=== PATIENT | female | born 1995 | race Two or more races ===

== ENCOUNTER 2016-11-01 12:17 | Emergency (ER) | payer BC ==
[~2016-11-01] VITALS: Ht 162.6 cm; Wt 59.5 kg
[2016-11-01 12:19] VITALS: BP 123/82; PULSE 87; RESP 16; TEMP 98.8; O2SAT 99
[2016-11-01] MEDS ORDERED: SODIUM CHLOR 0.9% 1000 ML INJ 1,000 ML IV SCH (12:55)
[2016-11-01] MEDS ORDERED: PANTOPRAZOLE SODIUM 40 MG VIAL IVP ONE (13:00)
[2016-11-01] MEDS ORDERED: SODIUM CHLORIDE 0.9% FLUSH 10 ML FLUSH IV FLUSH PRN (13:00)
[2016-11-01] MEDS ORDERED: ONDANSETRON HCL 4 MG/2 ML VIAL IVP ONE (13:00)
[2016-11-01 13:43] LABS: BASOPHIL % 0.5 % (0.0-2.0); EOSINOPHIL % 0.1 % (0.0-4.0); HEMATOCRIT 38.1 % (35.0-46.0); HEMO FLAGS DIFF FINAL; LYMPH % 32.7 % (9.0-44.0); LYMPHOCYTE # 1.7 TH/MM3 (1.0-4.8); MEAN CORPUSCULAR HEMOGLOBIN 31.1 PG (27.0-34.0); MEAN CORPUSCULAR HGB CONC 33.4 % (32.0-36.0); MONO % 7.8 % (0.0-8.0); NEUT % 58.9 % (16.0-70.0); PLATELET COUNT 227 TH/MM3 (150-450); RED CELL DISTRIBUTION WIDTH 12.8 % (11.6-17.2); WHITE BLOOD COUNT 5.2 TH/MM3 (4.0-11.0)
[2016-11-01 13:46] LABS: BLOOD, URINE NEG (NEG); COMMENT (UR) CULT NOT INDICATED; CULTURE IF INDICATED CULT NOT INDICATED; GLUCOSE,URINE NEG (NEG); KETONE, URINE NEG (NEG); MUCUS URINE FEW /lpf (OCC); NITRITE,URINE NEG (NEG); SQUAMOUS EPITHELIAL CELL URINE 3 /hpf (0-5); URINE COLOR YELLOW (YELLW/STRAW)
[2016-11-01 14:04] LABS: ANION GAP 9 MEQ/L (5-15); AST (GOT) 9 U/L (16-38); BICARBONATE 24.7 MEQ/L (21.0-32.0); BLOOD UREA NITROGEN 7 MG/DL (7-18); CHLORIDE 106 MEQ/L (98-107); GLOMERULAR FILTRATION RATE 85 ML/MIN (>89); POTASSIUM 3.8 MEQ/L (3.5-5.1); SODIUM (NA) 140 MEQ/L (136-145)
[2016-11-01 14:07] LABS: ALKALINE PHOSPHATASE 68 U/L (45-117); ALT (GPT) 14 U/L (9-42); TOTAL BILIRUBIN ADULT 0.6 MG/DL (0.2-1.0)
--- NOTE | 2016-11-01 14:15 | PD ---
HPI Chief Complaint: GI Complaint Time Seen by Provider: 12:51 Travel History International Travel<30 days: No Contact w/Intl Traveler<30days: No Traveled to known affect area: No History of Present Illness HPI 20-year-old female came to the emergency room with history of epigastric pain, heartburn along with rectal pain and some bleeding. Patient says that the rectal pain and the bleeding has been going on for past 4-5 days. It's however progressively worsening where she is and sharp pain every time she goes to have a bowel movement. She has noticed blood in her stool only when she wipes herself. The bleeding is not a large quantity. Last night she started having abdominal pain radiating up to her chest substernally. This morning when she woke up it was worse and she got very anxious. She is brought here by her father. Vital signs otherwise within normal limit. Her father let me know that she is under a a lot of stress from her classes. As per him she gets stressed out very easily. PFSH Past Medical History Narrative Medical Patient is otherwise a healthy person. Rest of her past medical, surgical, social and family history is reviewed from the nursing note. Medical History: Denies Significant Hx Diminished Hearing: No Tetanus Vaccination: > 5 Years Influenza Vaccination: No ?: Not LMP: 09/2016 : 0 Para: 0 Miscarriage: 0 : 0 Past Surgical History Surgical History: No Previous Surgery Social History Alcohol Use: Yes (OCC) Tobacco Use: No Substance Use: No ("TRIED CANNABIS") Allergies-Medications (Allergen,Severity, Reaction): Coded Allergies: No Known Allergies (Unverified , 11/01/16) Comments No known drug allergies. Reported Meds & Prescriptions Reported Meds & Active Scripts Active Anusol-Hc Rectal (Hydrocortisone Rectal) 2.5% Cream 1 Applic RECTAL Q4-6H PRN Zofran Odt (Ondansetron Odt) 4 Mg Tab 4 Mg SL Q6HR PRN Protonix (Pantoprazole Sodium) 40 Mg Tab 40 Mg PO DAILY Narrative Medication List of her home medications reviewed from the nursing note. Review of Systems Except as stated in HPI: all other systems reviewed are Neg Physical Exam Narrative GENERAL: Awake, alert, anxious, moderate distress SKIN: Focused skin assessment warm/dry. HEAD: Atraumatic. Normocephalic. EYES: Pupils equal and round. No scleral icterus. No injection or drainage. ENT: No nasal bleeding or discharge. Mucous membranes pink and moist. NECK: Trachea midline. No JVD. CARDIOVASCULAR: Regular rate and rhythm. No murmur appreciated. RESPIRATORY: No accessory muscle use. Clear to auscultation. Breath sounds equal bilaterally. GASTROINTESTINAL: Abdomen soft, epigastric tenderness, nondistended. Hepatic and splenic margins not palpable. : A rectal exam was done. Patient was in anal spasm. There was a small external hemorrhoid with an anal fissure noticed at 6 o'clock position. She was very tender there. MUSCULOSKELETAL: No obvious deformities. No clubbing. No cyanosis. No edema. NEUROLOGICAL: Awake and alert. No obvious cranial nerve deficits. Motor grossly within normal limits. Normal speech. PSYCHIATRIC: Appropriate mood and affect; insight and judgment normal. Data Data Last Documented VS Vital Signs Date Time Temp Pulse Resp B/P Pulse Ox O2 Delivery O2 Flow Rate FiO2 11/01/16 14:41 97 18 128/74 100 11/01/16 12:19 98.8 Orders Complete Blood Count With Diff (11/01/16 12:55) Comprehensive Metabolic Panel (11/01/16 12:55) Lipase (11/01/16 12:55) Urinalysis - C+S If Indicated (11/01/16 12:55) Iv Access Insert/Monitor (11/01/16 12:55) Ecg Monitoring (11/01/16 12:55) Oximetry (11/01/16 12:55) Ondansetron Inj (Zofran Inj) (11/01/16 13:00) Pantoprazole Inj (Protonix Inj) (11/01/16 13:00) Sodium Chlor 0.9% 1000 Ml Inj (Ns 1000 M (11/01/16 12:55) Sodium Chloride 0.9% Flush (Ns Flush) (11/01/16 13:00) Ed Urine Pregnancytest Poc (11/01/16 12:55) Ed Poc Ultrasound (11/01/16 ) Labs Laboratory Tests Test 11/01/16 13:30 White Blood Count 5.2 TH/MM3 Red Blood Count 4.10 MIL/MM3 Hemoglobin 12.7 GM/DL Hematocrit 38.1 % Mean Corpuscular Volume 93.0 FL Mean Corpuscular Hemoglobin 31.1 PG Mean Corpuscular Hemoglobin 33.4 % Concent Red Cell Distribution Width 12.8 % Platelet Count 227 TH/MM3 Mean Platelet Volume 8.5 FL Neutrophils (%) (Auto) 58.9 % Lymphocytes (%) (Auto) 32.7 % Monocytes (%) (Auto) 7.8 % Eosinophils (%) (Auto) 0.1 % Basophils (%) (Auto) 0.5 % Neutrophils # (Auto) 3.0 TH/MM3 Lymphocytes # (Auto) 1.7 TH/MM3 Monocytes # (Auto) 0.4 TH/MM3 Eosinophils # (Auto) 0.0 TH/MM3 Basophils # (Auto) 0.0 TH/MM3 CBC Comment DIFF FINAL Differential Comment Urine Color YELLOW Urine Turbidity CLEAR Urine pH 6.0 Urine Specific Lenore 1.011 Urine Protein NEG mg/dL Urine Glucose (UA) NEG mg/dL Urine Ketones NEG mg/dL Urine Occult Blood NEG Urine Nitrite NEG Urine Bilirubin NEG Urine Urobilinogen LESS THAN 2.0 MG/DL Urine Leukocyte Esterase NEG Urine RBC 1 /hpf Urine WBC 2 /hpf Urine Squamous Epithelial 3 /hpf Cells Urine Mucus FEW /lpf Microscopic Urinalysis Comment CULT NOT INDICATED Sodium Level 140 MEQ/L Potassium Level 3.8 MEQ/L Chloride Level 106 MEQ/L Carbon Dioxide Level 24.7 MEQ/L Anion Gap 9 MEQ/L Blood Urea Nitrogen 7 MG/DL Creatinine 0.86 MG/DL Estimat Glomerular Filtration 85 ML/MIN Rate Random Glucose 91 MG/DL Calcium Level 9.2 MG/DL Total Bilirubin 0.6 MG/DL Aspartate Amino Transf 9 U/L (AST/SGOT) Alanine Aminotransferase 14 U/L (ALT/SGPT) Alkaline Phosphatase 68 U/L Total Protein 8.0 GM/DL Albumin 4.2 GM/DL Lipase 104 U/L [facility] Medical Decision Making Medical Screen Exam Complete: Yes Emergency Medical Condition: Yes Medical Record Reviewed: Yes Differential Diagnosis Acute gastritis, anal tear, anal hemorrhoid, acute cholecystitis Narrative Course 2:14 PM blood test results of back and completely within normal limit. UA is negative. Patient has received 1 L of IV fluid and IV Protonix. I will do a bedside ultrasound at this point. Please refer to my procedure note. Procedures Procedure Narrative Emergency department right upper quadrant ultrasound was performed with patient consent. Curvilinear probe was used in the transverse and sagittal views within the right upper quadrant revealing gallbladder without obvious wall thickening, cholecystic fluid, or cholelithiasis. EKG Prior to Arrival: No Diagnosis Primary Impression: Acute gastritis Qualified Code: K29.00 - Acute gastritis without hemorrhage, unspecified gastritis type Additional Impression: Anal tear Referrals: Primary Care Physician 3 days Additional Instructions: Please return to the ER if the condition worsens or any other new concerns. Otherwise follow-up with your primary care. Restrict diet from eating acidic food, alcohol, coffee etc. that can make your acid level go up in the stomach. If the symptoms do not get better please follow-up with your primary care for a referral to GI for possible endoscopy. Take the medications as per the prescription direction. Med/Other Pt SpecificInfo: Prescription(s) given Scripts Hydrocortisone Rectal (Anusol-Hc Rectal)2.5% Cream1 Applic RECTAL Q4-6H PRN ( ITCHING/INFLAMMATION) #15 GM Ref 0 Prov:Isaías Valdes MD 11/01/16 Ondansetron Odt (Zofran Odt)4 Mg Tab4 Mg SL Q6HR PRN (Nausea/Vomiting) #14 TAB Ref 0 Prov:Isaías Valdes MD 11/01/16 Pantoprazole (Protonix)40 Mg Tab40 Mg PO DAILY #14 TAB Ref 0 Prov:Isaías Valdes MD 11/01/16 Disposition: 01 DISCHARGE HOME Condition: Stable Isaías Valdes MD November 01, 2016 14:15
[2016-11-01] MEDS ORDERED: PROT40TA PO (14:27)
[2016-11-01] MEDS ORDERED: HYDR2.5%T RECTAL (14:27)
[2016-11-01] MEDS ORDERED: ZOFR4TAB3 SL (14:27)
[2016-11-01 14:41] VITALS: BP 128/74
== END 2016-11-01 14:48 | disposition home or self-care (01) ==
LOC: NEPD 12:17
DX: K29.00 Acute gastritis without bleeding (principal)
CPT/HCPCS: 80053; 81001; 83690; 84703; 85025; 96374; 96375; 99284; C9113; J2405; J7030